=== PATIENT | male | born 1955 | race Caucasian/White ===

== ENCOUNTER 2016-07-07 05:25 | Emergency (ER) | payer MEDICARE ==
[~2016-07-07] VITALS: Ht 177.8 cm; Wt 108.9 kg
[2016-07-07] MEDS ORDERED: IV NS 0.9% 1,000 ML ONE (05:39)
[2016-07-07] MEDS ORDERED: HYDROMORPHONE 1 MG/1 ML DISP.SYRIN ONE ×3 (05:39→05:58)
[2016-07-07] MEDS ORDERED: IV SET PRIMARY 1 EA INFUS.SET MC ONE (05:39)
[2016-07-07] MEDS ORDERED: ONDANSETRON HCL/PF 4 MG/2 ML VIAL ONE (05:39)
--- NOTE | 2016-07-07 05:40 | NUR ---
PT PRESENTED TO THE ER WITH A C/O LLQ ABD PAIN 10/10. PT WAS TRIAGED AND TAKEN TO ROOM #4. PT WAS PLACED ON THE MONITOR AND CONTINUOUS PULSE OX. PT IS GUARDING LLQ. PT IS MOANING AND STATING THAT THE PAIN IS 10/10.
--- NOTE | 2016-07-07 05:46 | NUR ---
RADIOLOGY CALLED FOR TRANSPORT TO CT
--- NOTE | 2016-07-07 05:46 | NUR ---
CALLED RADIOLOGY RE: PT READY FOR CT.
--- NOTE | 2016-07-07 05:49 | NUR ---
PT LEFT FOR CT VIA GURNEY.
--- NOTE | 2016-07-07 05:53 | NUR ---
Salma schulz in ED - 07/07/[address] HUANG IS SPEAKING TO Karen BISHOP DNP.
--- NOTE | 2016-07-07 05:58 | NUR ---
PT REC'D WARM BLANKETS. PT IS C/O ABD 01/02. DR. HUANG IS AWARE.
--- NOTE | 2016-07-07 05:58 | NUR ---
PT RETURNED FROM CT.
[2016-07-07 05:59] LABS: BASOPHILS % (AUTO) 0.1 % (0.0-2.0); EOSINOPHILS # (AUTO) 0.3 /CMM (0.0-0.7); EOSINOPHILS % (AUTO) 4.3 % (0.0-6.0); HEMATOCRIT 48 % (39-51); HEMOGLOBIN 16.9 g/dL (13.5-17.5); LYMPHOCYTES # (AUTO) 1.5 /CMM (0.8-4.8); LYMPHOCYTES % (AUTO) 18.6 % (20.0-44.0); MEAN CORPUSCULAR HEMOGLOBIN 30 PG (26.0-33.0); MEAN CORPUSCULAR HGB CONC 35 g/dl (31.0-36.0); MEAN CORPUSCULAR VOLUME 87 fL (80-96); MONOCYTES # (AUTO) 0.7 /CMM (0.1-1.30); MONOCYTES % (AUTO) 8.3 % (2.0-12.0); NEUTROPHILS # (AUTO) 5.4 /CMM (1.8-8.9); NEUTROPHILS % (AUTO) 68.7 % (43.0-81.0); PLATELET COUNT (AUTO) 179 /CMM (150-450); RDW COEFFICIENT OF VARIATION 13.2 (11.5-15.0); WHITE BLOOD COUNT (AUTO) 7.9 K/uL (4.3-11.0)
[2016-07-07] MEDS ORDERED: HYDROMORPHONE INJ 2 MG/ML DISP.SYRIN IV ONE (06:00)
[2016-07-07] MEDS ORDERED: IV NS 0.9% 1,000 ML BAG IV ONE (06:00)
[2016-07-07] MEDS ORDERED: ONDANSETRON HCL/PF 4 MG/2 ML VIAL IVP ONE (06:00)
[2016-07-07] MEDS ORDERED: HYDROMORPHONE 1 MG/1 ML DISP.SYRIN IV ONE ×2 (06:00)
--- NOTE | 2016-07-07 06:04 | NUR ---
PT WAS PLACED ON 2L O2 VIA NC. PT'S O2 SAT DECREASED TO 97% ON RA. PT STILL C/O ABD PAIN 10 LLQ. PT TO RECEIVE MORE PAIN MEDICATION PER DR. HUANG.
--- NOTE | 2016-07-07 06:06 | NUR ---
PT APPEARS TO HAVE STOPPED MOANING. PT IS ON THE MONITOR AND CONTINUOUS PULSE OX. VSS. PT WILL CONTINUE TO BE MONITORED.
[2016-07-07 06:13] LABS: CALCIUM, SERUM 8.8 mg/dL (8.5-10.1); CREATININE 1.1 mg/dL (0.6-1.3); INR 1.03 (0.87-1.13); POTASSIUM 4.2 mmol/L (3.5-5.1)
--- NOTE | 2016-07-07 06:14 | NUR ---
PT STATED THAT HIS PAIN IS NOW A 10/02.
--- NOTE | 2016-07-07 06:18 | NUR ---
PT REQUESTED A URINAL. ANASTASIA BELCHER IS AT THE BEDSIDE WITH PT.
[2016-07-07 06:19] LABS: ALBUMIN 3.9 g/dL (3.4-5.0); BILIRUBIN,TOTAL 0.4 mg/dL (0.2-1.0)
--- NOTE | 2016-07-07 06:23 | NUR ---
URINE SAMPLE OBTAINED AND LAB CALLED FOR P/U
[2016-07-07 06:42] LABS: APPEARANCE,URINE CLEAR (CLEAR); BILIRUBIN,URINE NEGATIVE (NEGATIVE); BLOOD, URINE TRACE Ery/uL (NEGATIVE); COLOR,URINE YELLOW (YELLOW); KETONES,URINE NEGATIVE (NEGATIVE); LEUKOCYTE ESTERASE ,URINE NEGATIVE (NEGATIVE); NITRITE, URINE NEGATIVE (NEGATIVE); PROTEIN,URINE NEGATIVE (NEGATIVE); UGLUCOSE NEGATIVE (NEGATIVE); UROBILINOGEN,URINE 0.2 EU/dL (0.2)
[2016-07-07 06:45] LABS: ADD URINE CULTURE NO; BACTERIA,URINE Rare /HPF (None Seen); SQUAMOUS EPITHELIAL CELL,UR Few /HPF (None Seen); WBC,URINE 0-2 /HPF (0-3)
--- NOTE | 2016-07-07 06:51 | NUR ---
DR. GALEAS IS AT THE BEDSIDE SPEAKING TO THE PT.
[2016-07-07] MEDS ORDERED: ONDANSETRON 4 MG TAB.RAPDIS ONE (07:05)
--- NOTE | 2016-07-07 07:10 | NUR ---
IV removed. Catheter intact and site benign. Pressure and 4x4 applied to site. No bleeding noted.Patient discharged to home in stable condition. Written and verbal after care instructions given. Patient verbalizes understanding of instruction AND RX. PT AMBULATED OUT WITH A STEADY GAIT. VSS.
[2016-07-07 07:11] VITALS: BP 159/87
[2016-07-07] MEDS ORDERED: ONDANSETRON 4 MG TAB.RAPDIS SL ONE (07:30)
== END 2016-07-07 07:12 | disposition home or self-care (01) ==
LOC: ER 05:27
DX: R10.32 Left lower quadrant pain (principal); C18.9 Malignant neoplasm of colon, unspecified; C61 Malignant neoplasm of prostate; Z88.8 Allergy status to other drugs, medicaments and biological substances; Z85.038 Personal history of other malignant neoplasm of large intestine
CPT/HCPCS: 36415; 80048-TC; 80076-TC; 81000-TC; 83690-TC; 85025-TC; 85730-TC; A4606; J1170; J2405; J7030; Q0162; Z7610